=== PATIENT | male | born 1990 | race American Indian/Alaskan Native ===

== ENCOUNTER 2018-08-10 06:12 | Emergency (ER) | payer BC ==
[2018-08-10] MEDS ORDERED: Tetracaine HCl/PF 0.5% 4 ML Bottle EYERT ONE (06:28)
--- NOTE | 2018-08-10 06:43 | EDM.PDOC ---
ED HPI GENERAL MEDICAL PROBLEM - General Chief Complaint: Eye Problems Stated Complaint: SOMETHING IN RIGHT EYE Time Seen by Provider: 08/10/18 06:30 - History of Present Illness INITIAL COMMENTS - FREE TEXT/NARRATIVE: HISTORY AND PHYSICAL: History of present illness: The patient is a healthy 27 y/o male who was worn contact lenses since he was a teenager and presents with complaints of right eye pain that started after removing a contact lens 24 hours ago. The patient says that they are soft contacts but they're only daily wear and he fell asleep and then Saturday night and when he went to remove it he said he had some discomfort in his eye prior to removing it and then the pain intensified after removal. He said the pain came on gradually after removal of the contact lens and he noticed more redness and photophobia. His vision isn't blurred he does says it's very painful to open his eye. He has his glasses on and visual acuity was performed please see below. He has no associated symptoms of headache trauma to the area fevers chills nausea or vomiting. He said that prior to Saturday he had no eye complaints. He has only had clear tears and no cloudy drainage. The patient says that he does not feel like there is a foreign object in his eye but he is just having pain since the removal of the contact lens Review of systems: As per history of present illness and below otherwise all systems reviewed and negative. Past medical history: As per history of present illness and as reviewed below otherwise noncontributory. Surgical history: As per history of present illness and as reviewed below otherwise noncontributory. Social history: No reported history of drug or alcohol abuse. Family history: As per history of present illness and as reviewed below otherwise noncontributory. Physical exam: General: Well-developed well-nourished man who is nontoxic and vital signs were noted by me. The patient is very photophobic even after tetracaine insertion in the right eye. Visual acuity was performed by nursing and is intact 20/20 throughout HEENT: Atraumatic, normocephalic, pupils reactive, EOMs are intact, sclera on the right is grossly injected as are conjunctiva, negative for conjunctival pallor or scleral icterus, mucous membranes moist, throat clear, neck supple, nontender, trachea midline. No gross foreign bodies appreciated on visual inspection and the patient could not tolerate a funduscopic exam to the photophobia Lungs: Clear to auscultation, breath sounds equal bilaterally, chest nontender. Heart: S1S2, regular rate and rhythm no overt murmurs Abdomen: Deferred Pelvis: Deferred Genitourinary: Deferred. Rectal: Deferred. Extremities: Atraumatic, full range of motion Neurovascular unremarkable. Neuro: Awake, alert, oriented. Cranial nerves II through XII unremarkable. Cerebellum unremarkable. Motor and sensory unremarkable throughout. Exam nonfocal. Diagnostics: Visual acuity per nursing After tetracaine was placed by nursing a fluoroscein was stain was performed by me. There is a circular area of uptake noted on the medial aspect of the cornea just medial to the rim/border of the iris there are no foreign bodies appreciated and the sclera is grossly injected throughout. Tolerated the procedure well Therapeutics: Vigamox eyedrops 0646: Case was discussed with Dr. Manriquez who wants the patient to be on Vigamox eyedrops 1 drop every hour while awake and every 2 hours at nighttime. He wants me to give the patient his cell phone because if he has persistent pain he will see him later in the clinic otherwise he will see him tomorrow. The patient should avoid bright light and any other irritations Impression: Right eye corneal abrasion/ ulcer status post contact lens overuse Definitive disposition and diagnosis as appropriate pending reevaluation and review of above. right eye Pain Score (Numeric/FACES): 8 - Related Data Allergies Allergy/AdvReac Type Severity Reaction Status Date / Time No Known Allergies Allergy Verified 08/10/18 06:13 Home Meds: Home Meds Insulin Glarg,Human.Rec.Analog [Lantus] 30 units SQ BID 08/10/18 [History] Insuln Asp Prot/Insulin Aspart [NovoLOG Mix 70-30] 0 units SQ TID 08/10/18 [ History] Past Medical History Endocrine/Metabolic History: Reports: Diabetes, Type I Social & Family History - Family History Family Medical History: Noncontributory - Tobacco Use Smoking Status *Q: Never Smoker - Recreational Drug Use Recreational Drug Use: No ED ROS GENERAL - Review of Systems Review Of Systems: ROS reveals no pertinent complaints other than HPI. ED EXAM GENERAL W FULL EYE - Physical Exam Exam: See Below (See dictation) Course - Vital Signs Last Recorded V/S: Last Vital Signs Temp 36.2 C 08/10/18 06:15 Pulse 81 08/10/18 06:15 Resp 18 08/10/18 06:15 BP 131/94 H 08/10/18 06:15 Pulse Ox 98 08/10/18 06:15 - Orders/Labs/Meds Orders: Active Orders 24 hr Category Date Time Status Moxifloxacin [Vigamox 0.5% Ophth Soln] Med 08/10/18 06:47 Once 0.5 ml EYELF ONETIME ONE Meds: Medications Discontinued Medications Generic Name Dose Route Start Last Admin Trade Name Freq PRN Reason Stop Dose Admin Tetracaine HCl 0.5 ml 08/10/18 06:28 08/10/18 06:38 Tetracaine 0.5% Steri-Unit Aure EYERT 08/10/18 06:29 2 drop ASDIRECTED ONE Administration Departure - Departure Time of Disposition: 06:49 Disposition: Home, Self-Care 01 Condition: Good Clinical Impression: Disorder due to contact lens - Discharge Information Referrals: PCP,None [Primary Care Provider] - Forms: ED Department Discharge Additional Instructions: The following information is given to patients seen in the emergency department who are being discharged to home. This information is to outline your options for follow-up care. We provide all patients seen in our emergency department with a follow-up referral. The need for follow-up, as well as the timing and circumstances, are variable depending upon the specifics of your emergency department visit. If you don't have a primary care physician on staff, we will provide you with a referral. We always advise you to contact your personal physician following an emergency department visit to inform them of the circumstance of the visit and for follow-up with them and/or the need for any referrals to a consulting specialist. The emergency department will also refer you to a specialist when appropriate. This referral assures that you have the opportunity for followup care with a specialist. All of these measure are taken in an effort to provide you with optimal care, which includes your followup. Under all circumstances we always encourage you to contact your private physician who remains a resource for coordinating your care. When calling for followup care, please make the office aware that this follow-up is from your recent emergency room visit. If for any reason you are refused follow-up, please contact the [facility] emergency department at and ask to speak to the emergency department charge nurse. [facility]ophthalmology [address] [place] [address] Please call the clinic tomorrow morning and schedule a follow-up appointment to see Dr. Manriquez as we discussed. His personal cell phone number is [phone] and he wants you to call him if as the day progresses you do not feel that the eyedrops are making the pain better. Please use the eyedrops your given here in the ED, Vigamox, 1 drop every hour while your awake and every 2 hours at nighttime. Try to avoid further rubbing an injury to the area of your eye and do not wear contact lenses only wear glasses. Return to ER as needed and as discussed - My Orders Last 24 Hours: My Active Orders 08/10/18 06:47 Moxifloxacin [Vigamox 0.5% Ophth Soln] 0.5 ml EYELF ONETIME ONE - Assessment/Plan Last 24 Hours: My Active Orders 08/10/18 06:47 Moxifloxacin [Vigamox 0.5% Ophth Soln] 0.5 ml EYELF ONETIME ONE
[2018-08-10] MEDS ORDERED: Moxifloxacin 0.5% Ophth Soln 3 ML Bottle EYELF ONE (06:47)
== END 2018-08-10 07:40 | disposition home or self-care (01) ==
LOC: MW.ED 06:12
DX: H18.821 Corneal disorder due to contact lens, right eye (principal); E10.9 Type 1 diabetes mellitus without complications
CPT/HCPCS: 99283